=== PATIENT | male | born 1980 | race Caucasian/White ===

== ENCOUNTER 2016-07-29 23:02 | Emergency (ER) | payer SELFPAY ==
[~2016-07-29] VITALS: Ht 172.7 cm; Wt 81.0 kg
[~2016-07-29 23:02] MED LIST: IBUP800T25 PO; OMEP20CA9 PO
[2016-07-29 23:14] VITALS: Ht 172.7 cm; Wt 81.0 kg
[2016-07-30] MEDS ORDERED: SOD CHLORIDE 0.9% 1,000 ML IV STA (01:17)
[2016-07-30] MEDS ORDERED: ONDANSETRON 4 MG INJ IV STA (01:17)
[2016-07-30] MEDS ORDERED: ACETAMINOPHEN 500 MG TAB PO STA (01:17)
--- NOTE | 2016-07-30 01:27 | ERD ---
ER Documentation Chief Complaint Date/Time DATE: 07/30/16 TIME: 01:22 Chief Complaint diarrhea with fever for past 2 days HPI 36-year-old male presents to emergency department for complaints of diarrhea and fever started 2 days ago. Patient also had vomiting episodes yesterday. Patient does not have any blood in the stool or black stool. Patient is complaining of generalized abdominal pain, cramping pain, intermittent, 4/10 scale, accompanied with fever and diarrhea and vomiting. Patient denies any abdominal pain at this time. Patient has been having fever. Patient denies any sick contacts. Patient denies eating something or different. Patient denies any flank pain. ROS All systems reviewed and are negative except as per history of present illness. Medications Home Meds Active Scripts Ondansetron (Ondansetron Odt) 4 Mg Tab.rapdis, 4 MG PO Q8 Y for NAUSEA AND/OR VOMITING, #30 TAB Prov:THELMA GUERRERO NP 07/30/16 Dicyclomine Hcl* (Bentyl*) 10 Mg Capsule, 10 MG PO QID, #20 CAP Prov:THELMA GUERRERO NP 07/30/16 Ibuprofen* (Motrin*) 600 Mg Tab, 600 MG PO Q6H Y for PAIN AND OR ELEVATED TEMP, #30 TAB Prov:THELMA GUERRERO NP 07/30/16 Ibuprofen* (Motrin*) 800 Mg Tab, 800 MG PO Q6H Y for PAIN AND OR ELEVATED TEMP, #30 TAB Prov:SHOAIB SIMMONS MD 01/29/15 Omeprazole* (Prilosec*) 20 Mg Capsule.dr, 20 MG PO DAILY for 30 Days, CAP Prov:SHOAIB SIMMONS MD 01/29/15 Allergies Allergies: Coded Allergies: No Known Allergy (Unverified , 01/29/15) PMhx/Soc History of Surgery: Yes (APPENDECTOMY) Anesthesia Reaction: No Hx Neurological Disorder: No Hx Respiratory Disorders: No Hx Cardiac Disorders: No Hx Psychiatric Problems: No Hx Miscellaneous Medical Probl: No Hx Alcohol Use: No Hx Substance Use: No Hx Tobacco Use: No Smoking Status: Never smoker FmHx Family History: No coronary disease, No diabetes, No other Physical Exam Vitals Vital Signs Date Time Temp Pulse Resp B/P Pulse Ox O2 Delivery O2 Flow Rate FiO2 07/30/16 03:43 102 16 136/83 97 Room Air 07/29/16 23:14 100.4 122 18 119/77 98 Physical Exam GENERAL: The patient is well developed and appropriate for usual state of health, in no apparent distress. CHEST: Clear to auscultation bilaterally. There are no rales, wheezes or rhonchi. HEART: Regular rate and rhythm. No murmurs, clicks, rubs or gallops. No S3 or S4. ABDOMEN: Soft, nontender and nondistended. Hyperactive bowel sounds. No rebound or guarding. No gross peritonitis. No gross organomegaly or masses. No Louis sign or McBurney point tenderness. BACK: No midline or flank tenderness. EXTREMITIES: Equal pulses bilaterally. There is no peripheral clubbing, cyanosis or edema. No focal swelling or erythema. Full range of motion. Grossly neurovascularly intact. NEURO: Alert and oriented. Cranial nerves 2-12 intact. Motor strength in all 4 extremities with 5/5 strength. Sensation grossly intact. Normal speech and gait. SKIN: There is no apparent rash or petechia. The skin is warm and dry. HEMATOLOGIC AND LYMPHATIC: There is no evidence of excessive bruising or lymphedema. No gross cervical, axillary, or inguinal lymphadenopathy. Result Diagram: 07/30/1613607/30/16136 Results 24 hrs Laboratory Tests Test 07/30/16 01:37 White Blood Count 15.910^3/ul Red Blood Count 5.6510^6/ul Hemoglobin 17.6g/dl Hematocrit 49.3% Mean Corpuscular Volume 87.3fl Mean Corpuscular Hemoglobin 31.2pg Mean Corpuscular Hemoglobin Concent 35.7g/dl Red Cell Distribution Width 12.6% Platelet Count 14893^3/UL Mean Platelet Volume 10.6fl Neutrophils % 83.5% Lymphocytes % 7.4% Monocytes % 8.1% Eosinophils % 0.2% Basophils % 0.2% Nucleated Red Blood Cells % 0.0/100WBC Neutrophils # 13.310^3/ul Lymphocytes # 1.210^3/ul Monocytes # 1.310^3/ul Eosinophils # 0.010^3/ul Basophils # 0.010^3/ul Nucleated Red Blood Cells # 0.010^3/ul Urine Color CORRIE Urine Clarity SLIGHTLY CLOUDY Urine pH 5.5 Urine Specific Donner >=1.030 Urine Ketones NEGATIVE Urine Nitrite NEGATIVE Urine Bilirubin 1+ Urine Ictotest POSITIVE Urine Urobilinogen 1.0 E.U./dL Urine Leukocyte Esterase NEGATIVE Urine Microscopic RBC 5-10/HPF Urine Microscopic WBC 2-5/HPF Urine Squamous Epithelial Cells FEW Urine Amorphous Urates FEW Urine Bacteria FEW Urine Hyaline Casts FEW Urine Granular Casts MODERATE Urine Mucus MANY Urine Hemoglobin 1+ Urine Glucose NEGATIVE% Urine Total Protein 2+ Sodium Level 139mmol/L Potassium Level 3.6mmol/L Chloride Level 103mmol/L Carbon Dioxide Level 18mmol/L Anion Gap 22 Blood Urea Nitrogen 24mg/dl Creatinine 1.05mg/dl Glucose Level 144mg/dl Calcium Level 9.3mg/dl Total Bilirubin 0.4mg/dl Direct Bilirubin 0.00mg/dl Indirect Bilirubin 0.4mg/dl Aspartate Amino Transf (AST/SGOT) 29IU/L Alanine Aminotransferase (ALT/SGPT) 61IU/L Alkaline Phosphatase 101IU/L Total Protein 9.4g/dl Albumin 4.9g/dl Globulin 4.50g/dl Albumin/Globulin Ratio 1.08 Lipase 48U/L Current Medications Medications (Trade) Dose Ordered Sig/Lizzy Route PRN Reason Start Time Stop Time Status Last Admin Dose Admin Sodium Chloride (NS) 1,000 ml @ 1,000 mls/hr Q1H STAT IV 07/30/16 01:17 07/30/16 02:16 DC 07/30/16 01:59 Ondansetron HCl (Zofran Inj) 4 mg ONCE STAT IV 07/30/16 01:17 07/30/16 01:18 DC 07/30/16 01:59 Acetaminophen (Tylenol Tab) 500 mg ONCE STAT PO 07/30/16 01:17 07/30/16 01:18 DC 07/30/16 01:59 Patient was given Zofran here in the emergency department. After treatment, patient was able to tolerate po fluids here in the emergency department without any vomiting. There is no signs and symptoms of dehydration. Patient was given medicines for fever control here in the emergency department. After treatment, patient temperature improved and lower. Patient appears well and is hemodynamically stable. Normal saline IV bolus was given here in emergency department for rehydration, patient tolerated IV fluids. PROCEDURE: CT Abdomen and Pelvis without contrast. CLINICAL INDICATION: Abdominal pain TECHNIQUE: CT scan of the abdomen and pelvis without contrast was performed on a multidetector high-resolution CT scanner. The patient was scanned without intravenous contrast. Coronal and sagittal reformatted images were obtained from the axial source images. Images were reviewed on a high-resolution PACS workstation. The total exam CTDI equals 10.55 mGy and the total exam DLP equals 692.99 mGy-cm. One or more the following dose reduction techniques were utilized: Automated exposure control, adjustment of the mA/ or kV according to patient's size, or use of iterative reconstruction technique. COMPARISON: Right upper quadrant abdominal ultrasound of 01/29/2015 FINDINGS: CT abdomen: The lung bases are clear. The heart size is normal, without pericardial thickening or effusion. Minimal linear calcification at the posterior aspect of posterior segment of the right lobe of liver. The spleen is normal in size and homogeneous in density. The stomach is partially collapsed, but is grossly unremarkable. The pancreas as visualized is normal. The gallbladder and biliary tree are unremarkable and there is no evidence for biliary dilatation. The adrenal glands are symmetric and normal. The kidneys are symmetrically unremarkable as well. No renal calculus or obstructive uropathy or mass lesion is seen. The aorta is of normal caliber. There is no retroperitoneal lymphadenopathy. The trevon hepatis region is clear. Appearance of submucosal fat deposition in the ascending colon and cecum could be secondary to previous inflammation. Very small umbilical hernia containing fat only. CT pelvis: The small bowel loops situated within the pelvis are unremarkable. The pelvic organs are normal. The bladder is nearly empty. The pelvic sidewalls and inguinal regions are clear. The sigmoid colon and rectum are unremarkable. No mass, lymphadenopathy, or free fluid is seen. No acute inflammation is seen. No evidence of acute appendicitis. Opaque sutures in right lower quadrant/ upper right pelvis could be secondary to previous appendectomy. Small scattered likely bone islands. Minimal degenerative changes at sacroiliac joints. Right lateral bridging osteophytes in lower thoracic spine. IMPRESSION: Appearance of submucosal fat deposition in the ascending colon and cecum could be secondary to previous inflammation. No acute abnormality seen. Please see above. RPTAT: HJES .Leighton Montana MD, MD Date Time Electronically viewed and signed by .Leighton Montana MD, MD on 07/30/2016 03:01 .S/ CC: THELMA GUERRERO NP Procedures/MDM Medical Decision Making: Patient symptoms of most likely consistent with viral gastroenteritis. No symptoms of dehydration at this time. There is low suspicion for abdominal emergencies at this time. Patients abdominal exam is normal at this time. Patients radiology exam does not show any abdominal emergencies at this time. There is low suspicion for appendicitis, cholecystitis , abdominal aortic aneurysms or peritonitis at this time. There is low suspicion for sepsis. Patient appears well and is hemodynamically stable. Disposition: Home. Condition: Stable Prescription Bentyl, Zofran, ibuprofen, Instructions: Patient is advised to take medications as prescribed. Patient is advised to rest, increase fluid intake and do brat diet for next 1-2 days and progress as tolerated. Patient is advised that if symptoms are worse, severe abdominal pain, uncontrolled vomiting, high fever, severe flank pain, worst signs and symptoms, to return to the emergency department immediately. Otherwise, patient can follow up with primary care doctor in 5-7 days. Departure Diagnosis: Primary Impression: Viral gastroenteritis Condition: Stable Patient Instructions: Gastroenteritis, Viral (6Y-Adult) Additional Instructions: Patient is advised to take medications as prescribed. Patient is advised to rest , increase fluid intake and do brat diet for next 1-2 days and progress as tolerated. Patient is advised that if symptoms are worse, severe abdominal pain , uncontrolled vomiting, high fever, severe flank pain, worst signs and symptoms , to return to the emergency department immediately. Otherwise, patient can follow up with primary care doctor in 5-7 days. THELMA GUERRERO NP July 30, 2016 01:27
[2016-07-30 01:46] LABS: ADD SCAN DIFF NO
[2016-07-30 01:48] LABS: BASOPHILS % 0.2 % (0.0-2.0); EOSINOPHILS % 0.2 % (0.0-7.0); HEMATOCRIT 49.3 % (42.0-52.0); HEMOGLOBIN 17.6 g/dl (14.0-18.0); LYMPHOCYTES # 1.2 10^3/ul (0.8-2.9); LYMPHOCYTES % 7.4 % (15.0-51.0); MEAN CORPUSCULAR HEMOGLOBIN 31.2 pg (29.0-33.0); MEAN CORPUSCULAR HGB CONC 35.7 g/dl (32.0-37.0); MEAN CORPUSCULAR VOLUME 87.3 fl (82.0-101.0); MEAN PLATELET VOLUME 10.6 fl (7.4-10.4); MONOCYTE # 1.3 10^3/ul (0.3-0.9); MONOCYTES % 8.1 % (0.0-11.0); NEUTROPHIL # 13.3 10^3/ul (1.6-7.5); NEUTROPHILS % 83.5 % (39.0-77.0); PLATELET COUNT 292 10^3/UL (140-415); RED BLOOD COUNT 5.65 10^6/ul (4.70-6.10); RED CELL DISTRIBUTION WIDTH 12.6 % (11.5-14.5); WHITE BLOOD COUNT 15.9 10^3/ul (4.8-10.8)
[2016-07-30 01:51] LABS: ADD UMIC YES; URINE BLOOD (Dip) 1+ (NEGATIVE); URINE COLOR AMBER (YELLOW); URINE GLUCOSE (Dip) NEGATIVE (NEGATIVE); URINE KETONES (Dip) NEGATIVE (NEGATIVE); URINE LEUKOCYTE ESTERASE (Dip) NEGATIVE (NEGATIVE); URINE NITRITE (Dip) NEGATIVE (NEGATIVE); URINE TOTAL PROTEIN (Dip) 2+ (NEGATIVE); URINE UROBILINOGEN (Dip) 1.0 E.U./dL (0.1-1.0)
[2016-07-30 02:05] LABS: URINE BILIRUBIN (Dip) 1+ (NEGATIVE)
[2016-07-30 02:06] LABS: ALBUMIN 4.9 g/dl (3.3-4.9); ALBUMIN/GLOBULIN RATIO 1.08; BILIRUBIN,INDIRECT 0.4 mg/dl (0-1.1); BILIRUBIN,TOTAL 0.4 mg/dl (0.2-1.3); CALCIUM 9.3 mg/dl (8.4-10.2); CREATININE 1.05 mg/dl (0.61-1.24); POTASSIUM 3.6 mmol/L (3.5-5.1); TOTAL PROTEIN 9.4 g/dl (6.1-8.1)
[2016-07-30 02:07] LABS: ICTOTEST POSITIVE (NEGATIVE)
[2016-07-30 02:09] LABS: MUCUS,URINE MANY
[2016-07-30 02:10] LABS: BACTERIA,URINE FEW; SQUAMOUS EPITHELIAL CELL,UR FEW
--- NOTE | 2016-07-30 03:01 | RADRPT ---
PROCEDURE: CT Abdomen and Pelvis without contrast. CLINICAL INDICATION: Abdominal pain TECHNIQUE: CT scan of the abdomen and pelvis without contrast was performed on a multidetector hig h-resolution CT scanner. The patient was scanned without intravenous contrast. Coronal and sagittal reformatted images were obtained from the axial source images. Images were reviewed on a high-resol [employer] PACS workstation. The total exam CTDI equals 10.55 mGy and the total exam DLP equals 692.99 mG y-cm. One or more the following dose reduction techniques were utilized: Automated exposure control, adjus tment of the mA/ or kV according to patient's size, or use of iterative reconstruction technique. COMPARISON: Right upper quadrant abdominal ultrasound of 01/29/2015 FINDINGS: CT abdomen: The lung bases are clear. The heart size is normal, without pericardial thickening or effusion. Min imal linear calcification at the posterior aspect of posterior segment of the right lobe of liver. The spleen is normal in size and homogeneous in density. The stomach is partially collapsed, but is grossly unremarkable. The pancreas as visualized is normal. The gallbladder and biliary tree are unremarkable and there is no evidence for biliary dilatation. The adrenal glands are symmetric and normal. The kidneys are symmetrically unremarkable as well. No renal calculus or obstructive uropa thy or mass lesion is seen. The aorta is of normal caliber. There is no retroperitoneal lymphadenopathy. The trevon hepatis r egion is clear. Appearance of submucosal fat deposition in the ascending colon and cecum could be se condary to previous inflammation. Very small umbilical hernia containing fat only. CT pelvis: The small bowel loops situated within the pelvis are unremarkable. The pelvic organs are normal. Th e bladder is nearly empty. The pelvic sidewalls and inguinal regions are clear. The sigmoid colon and rectum are unremarkable. No mass, lymphadenopathy, or free fluid is seen. No acute inflammatio n is seen. No evidence of acute appendicitis. Opaque sutures in right lower quadrant/upper right p yue could be secondary to previous appendectomy. Small scattered likely bone islands. Minimal degenerative changes at sacroiliac joints. Right later al bridging osteophytes in lower thoracic spine. IMPRESSION: Appearance of submucosal fat deposition in the ascending colon and cecum could be secondary to previ ous inflammation. No acute abnormality seen. Please see above. RPTAT: HJES .Leighton Montana MD, MD Date Time Electronically viewed and signed by .Leighton Montana MD, on 07/30/2016 03:01 .S/
[2016-07-30] MEDS ORDERED: DICY10CA60 PO (03:28)
[2016-07-30] MEDS ORDERED: IBUP-1542 PO (03:28)
[2016-07-30] MEDS ORDERED: ONDA4TAB14 PO (03:28)
[2016-07-30 03:43] VITALS: BP 136/83; PULSE 102; RESP 16
== END 2016-07-30 03:44 | disposition home or self-care (01) ==
LOC: FTE 23:02
DX: A08.4 Viral intestinal infection, unspecified (principal)
CPT/HCPCS: 36415; 74176; 80053; 81001; 83690; 85025; 96374; 99285; J2405; J7030